=== PATIENT | male | born 1970 | race Caucasian/White ===

== ENCOUNTER 2019-08-04 10:16 | Emergency (ER) | payer BC, OTHER ==
[~2019-08-04] VITALS: Ht 170.2 cm; Wt 70.5 kg
[~2019-08-04 10:16] MED LIST: AMPH30TA3 PO; CHLO25CA10 PO; ONDA4TAB12 PO; PRAZ1CAP5 PO; SERT100T10 PO; TRAZ-251 PO
[2019-08-04] MEDS ORDERED: TETanus/Pertussis (Acell)/Diphther VAC/PF (Tdap-Adult) 0.5ml syringe IMVAC ONE (10:40)
[2019-08-04] MEDS ORDERED: LIDOcaine 1% W/epiNEPHrine 1:200,000 10ml vial IJ ONE (10:40)
--- NOTE | 2019-08-04 12:11 | NUR ---
pt wound irrigated with 300 ml of sterile water.pt wound clean ready to repair.
[2019-08-04] MEDS ORDERED: HYDR-4353 PO (12:43)
[2019-08-04 13:04] VITALS: BP 126/80
== END 2019-08-04 13:00 | disposition home or self-care (01) ==
LOC: ER 10:17
DX: S61.411A Laceration without foreign body of right hand, initial encounter (principal); F41.9 Anxiety disorder, unspecified; F32.9 Major depressive disorder, single episode, unspecified; Z98.890 Other specified postprocedural states; Z88.8 Allergy status to other drugs, medicaments and biological substances; Z79.899 Other long term (current) drug therapy; W27.0XXA Contact with workbench tool, initial encounter; Y93.89 Activity, other specified; Y92.89 Other specified places as the place of occurrence of the external cause; Y99.8 Other external cause status
CPT/HCPCS: 12002; 73130; 90471; 90715; 99283

== ENCOUNTER 2024-12-11 23:14 | Emergency (ER) | payer BC, MEDICAID ==
[~2024-12-11] VITALS: Ht 165.1 cm; Wt 56.7 kg
[~2024-12-11 23:14] MED LIST changes: +ONDA-243 PO; -ONDA4TAB12 PO; +SERT-434 PO; -SERT100T10 PO
[2024-12-11 23:18] VITALS: BP 110/71; PULSE 89; RESP 16; TEMP 98.2; O2SAT 99
--- NOTE | 2024-12-11 23:47 | Physician Documentation ---
History of Present Illness ~ Chief Complaint: Bite-animal Stated Complaint: HAND PAIN/DOG BITE Time Seen by MD: 23:45 Primary Medical Doctor: [facility] HPI Patient presents to the emergency room with laceration to the tip of his right thumb. He is trying to get a chicken bone out of his dog's mouth when he got nipped. Dog otherwise acting normally. Unknown tetanus Tetanus within 5 years?: Yes (unknown ) Medication Reconciliation Allergies: Coded Allergies: amitriptyline (Verified Allergy, Unknown, 12/11/24) quetiapine (Verified Allergy, Unknown, swelling, 08/04/19) Scheduled Chlordiazepoxide Hcl (Librium), 25 MG PO TID Dextroamphetamine/Amphetamine (Adderall 30 mg Tablet), 30 MG PO BID, (Reported) Prazosin Hcl (Prazosin Hcl), 1 CAP PO HS, (Reported) Sertraline HCl (Sertraline HCl), 150 MG PO DAILY, (Reported) Trazodone HCl (Trazodone HCl), 1 TABLET PO HS, (Reported) Scheduled PRN ONDANSETRON ODT 4mg tablet (Ondansetron Odt), 1 TABLET PO Q6H PRN for nausea/vomiting Past Medical History Past Medical History: Diverticulitis, Diverticulosis, Hernia, Anxiety, Depression, Panic Disorder Past Surgical History: orthopedic surgeries Alcohol Use: Sober Drug Use: none Lives In: Home Review of Systems ROS All review of systems negative except as per HPI Physical Exam Vital Signs: Temperature: 98.2, Source: Temporal, Heart Rate: 89, Respiratory Rate: 16, BP: 110/71, Pulse Oximetry: 99, Weight: 56.700 Oxygen Flow Rate: 0 General Appearance General: Patient is awake, alert, oriented x4 in no acute distress and well kevin earing.~ Head: Normocephalic and atraumatic. Eyes: Conjunctival normal. EOMI. PERRL. ENT: Mucous membranes moist. Neck: Supple, trachea is midline. Chest: Clear to auscultation bilaterally without rales, rhonchi, or wheezes. There is no accessory muscle use or retractions. Cardiac: RRR without murmurs, gallops, or rubs. Extremities: 1 cm full-thickness laceration to the tip of patient's 1st right digit. No active bleeding Procedures Procedures Digital block: Status post informed consent digital block was performed. Patient was sterilely cleaned and draped in 2 cc of lidocaine with epinephrine utilized to anesthetize patient's affected right 1st digit. Patient tolerated procedure well without complication. Total time of procedure 2 minutes. Laceration repair: Status post informed verbal consent patient was sterilely cleaned and draped. Three simple interrupted sutures using 4-0 Ethilon utilized to approximate laceration. Patient's wound was thoroughly irrigated prior to procedure. Patient tolerated procedure well without complication. Total time of procedure 5 minutes. Progress Results/Orders Results/Orders Orders - UCHE IGLESIAS MD Hand, Complete (3vw Min) (12/11/24 23:38) Dressing Orders (12/11/24 23:50) Wound Care Orders (12/11/24 23:50) Completed Orders - UCHE IGLESIAS MD Hand, Complete (3vw Min) (12/11/24 23:38) Lidocaine 1% W/Epi 1:100,000 (Xylocaine (12/11/24 23:50) Tetanus/Pertuss/Diph Acell/Pf (Boostrix (12/11/24 23:50) Ondansetron Disint. Tablet (Zofran Odt T (12/12/24 00:10) Amox Tr/Potassium Clavulanate (Augmentin (12/12/24 00:10) Vital Signs 12/11/24 23:18 Temp 98.2 Pulse 89 Resp 16 B/P (MAP) 110/71 Pulse Ox 99 O2 Flow Rate 0 Medical Decision Making Additional information obtaine: N/A Findings Patient presented to the emergency room with dog bite laceration. Tetanus made to be up-to-date. Antibiotics initiated in wound care provided along with suturing. The need to have sutures removed discussed as well as ER precautions regarding signs of infection. Differential Dx:Considerations: Include: Abrasion, Allergic reaction, Anaphylaxis, Cellulitis, Contusion, Fracture, Hematoma, Insect envenomation, Laceration, Neurovascular injury, Punture wound, Retained foreign body, Urticaria, Other Departure Disposition: 01 HOME / SELF CARE / HOMELESS Impression: Primary Impression: Dog bite Condition: Stable Discharge Instructions: Animal Bite, Adult Additional Instructions: Returned to any medical facility in 5-7 days for suture removal. Referrals: NO PRIMARY CARE PROVIDER (PCP) Prescriptions Amox Tr/Potassium Clavulanate (Augmentin 875-125 Tablet) 1 Each Tablet 1 TAB PO Q12H for 7 Days, #14 TAB Prov: UCHE IGLESIAS MD 12/12/24 Signature Scribe Signature: No scribe Attestation: The note accurately reflects work and decisions made by me.Uche Iglesias MD 12/12/24 00:43 UCHE IGLESIAS MD Dec 11, 2024 23:47
--- NOTE | 2024-12-11 23:51 | RADIOLOGY REPORT ---
CLINICAL INDICATION: HAND PAIN RIGHT TECHNIQUE: DI HAND, COMPLETE (3VW MIN) Comparison: None FINDINGS/IMPRESSION: : There is no evidence of acute fracture or dislocation. Healed chronic fracture deformity of the distal ulna. Soft tissues are unremarkable.
[2024-12-12] MEDS ORDERED: AMOX-117 PO (00:43)
[2024-12-12] MEDS: LIDOcaine 1% W/epiNEPHrine 1:100,000 20ml vial IJ ONE (00:47)
[2024-12-12] MEDS: TETanus/Pertussis (Acell)/Diphther VAC/PF (Tdap-Adult) 0.5ml syringe IMVAC ONE (00:58)
[2024-12-12] MEDS: ondansetron 4mg rapidly disintigrating tab PO ONE (00:58)
[2024-12-12] MEDS: amox tr/potassium clavulanate 875/125mg TAB PO ONE (00:58)
[2024-12-13] MEDS ORDERED: ONDA-245 PO (05:51)
== END 2024-12-12 01:25 | disposition home or self-care (01) ==
LOC: ER 23:14
DX: S61.011A Laceration without foreign body of right thumb without damage to nail, initial encounter (principal); W54.0XXA Bitten by dog, initial encounter; Y93.89 Activity, other specified; Y92.89 Other specified places as the place of occurrence of the external cause; Y99.8 Other external cause status
CPT/HCPCS: 12001; 73130; 90471; 90715; 99283; A6258